=== PATIENT | female | born 1955 | race Caucasian/White ===

== ENCOUNTER 2021-09-04 13:45 | Emergency (ER) | payer OTHER, MEDICAID, SELFPAY ==
[~2021-09-04] VITALS: Ht 152.4 cm; Wt 65.8 kg
[2021-09-04 13:45] VITALS: BP_SYST 84
[2021-09-04 22:09] VITALS: BP_SYST 97
== END 2021-09-04 22:08 ==
LOC: SED 13:45
DX: F32.9 Major depressive disorder, single episode, unspecified (principal); I10 Essential (primary) hypertension; E11.9 Type 2 diabetes mellitus without complications; Z20.822 Contact with and (suspected) exposure to COVID-19
CPT/HCPCS: 71045; 93005; 99285